=== PATIENT | female | born 1950 | race Caucasian/White ===

== ENCOUNTER 2017-04-23 11:06 | Emergency (ER) | payer OTHER ==
--- NOTE | 2017-04-23 11:26 | CPEKG ---
Heart Rate: 52 RR Interval: 1154 P-R Interval: 208 QRSD Interval: 82 QT Interval: 460 QTC Interval: 428 P [place]: 42 QRS [place]: 20 T Wave [place]: 47 EKG Severity - BORDERLINE ECG - EKG Impression: SINUS RHYTHM EKG Impression: CONSIDER ANTERIOR INFARCT Electronically Signed By: Mario Vigil 25-Apr-2017 08:16:02
[2017-04-23 11:42] LABS: % IMMATURE GRANULYOCYTES 0.2 % (0.0-1.1); ABSOLUTE IMMATURE GRANULOCYTES 0.01 10^3/uL (0.00-0.10); ADD DIFF? NO; ADD MORPH? NO; ADD SCAN? NO; ATYPICAL LYMPHOCYTE FLAG 0 (0-99); FRAGMENT RBC FLAG 0 (0-99); HEMATOCRIT 43.2 % (38.0-47.0); HEMOGLOBIN 14.3 g/dL (12.6-16.3); LEFT SHIFT FLG 0 (0-99); LIPEMIA HEMOLYSIS FLAG 80 (0-99); MEAN CELL HEMOGLOBIN 30.1 pg (27.9-34.1); MEAN CELL HEMOGLOBIN CONCENTR. 33.1 g/dL (32.4-36.7); MEAN CELL VOLUME 90.9 fL (81.5-99.8); MEAN PLATELET VOLUME 8.9 fL (8.7-11.7); PLATELET CLUMPS FLAG 0 (0-99); PLATELET COUNT 288 10^3/uL (150-400); RED BLOOD CELL COUNT 4.75 10^6/uL (4.18-5.33); RED CELL DISTRIBUTION WIDTH 13.2 % (11.5-15.2)
[2017-04-23 11:54] LABS: ALANINE AMINOTRANSFERASE 45 IU/L (9-52); ALBUMIN 4.7 g/dL (3.5-5.0); ALKALINE PHOSPHATASE 94 IU/L (38-126); ANION GAP 15 mEq/L (8-16); ASPARTATE AMINOTRANSFERASE 38 IU/L (14-46); BILIRUBIN,TOTAL 0.5 mg/dL (0.1-1.4); BILIRUBIN-CONJUGATED 0.2 mg/dL (0.0-0.5); BILIRUBIN-UNCONJUGATED 0.3 mg/dL (0.0-1.1); CALCIUM 9.9 mg/dL (8.5-10.4); CARBON DIOXIDE 25 mEq/l (22-31); CHLORIDE 101 mEq/L (97-110); CREATININE 0.6 mg/dL (0.6-1.0); GLOMERULAR FILTRATION RATE > 60; GLUCOSE 86 mg/dL (70-100); POTASSIUM 4.2 mEq/L (3.5-5.2); SODIUM 141 mEq/L (134-144); TOTAL PROTEIN 7.8 g/dL (6.3-8.2)
[2017-04-23 12:05] LABS: TROPONIN I < 0.012 ng/mL (0.000-0.034)
--- NOTE | 2017-04-23 12:09 | EDPHY ---
HPI/HX/ROS/PE/MDM Narrative: CHIEF COMPLAINT: Shortness of breath HPI: The patient is a 66-year-old female who complains of 1 week of shortness of breath. She reports intermittent episodes of shortness of breath that occur mostly at night and occasionally wake her up. The other night she had 4 of these episodes during the night. Over the past few days she developed mild chest pain that comes and goes. Patient has a history of GERD, she states she may have missed doses of her AcipHex. Patient is asymptomatic with exercise. She drove out here to visit her daughter. No history of DVT or PE. No pain or swelling in lower extremities. REVIEW OF SYSTEMS: Aside from elements discussed in the HPI, a comprehensive 10-point review of systems was reviewed and is negative. PMH: High cholesterol, Superficial melanoma, GERD SOCIAL HISTORY: Here visiting her daughter. PHYSICAL EXAM: General: Patient is alert, in no acute distress. ENT: Eyes are normal to inspection. ENT inspection normal. Neck: Normal inspection. Full range of motion. Respiratory: No respiratory distress. Breath sounds normal bilaterally. Cardiovascular: Regular rate and rhythm. Strong peripheral pulses. Abdomen: The abdomen is nontender to palpation. There are no peritoneal signs. There are normal bowel sounds. Back: Normal to inspection. No tenderness to palpation. Skin: Normal color. No rash. Warm and dry. Extremities: Normal appearance. Full range of motion. Neuro: Oriented x3. Normal motor function. Normal sensory function. ED Course: EKG was ordered and interpreted by myself, normal EKG. Please see [employer] system for official reading. Chest x-ray is normal. Lab work is normal. MDM: I had an extensive discussion with this patient regarding her workup and possible etiologies. We discussed the fact that although there is no evidence of ACS or ischemia, that this cannot be fully ruled out in the ED. We will give her referral to [facility]. I suspect her symptoms are likely related to GERD. She is able to exercise without CP or SOB, which is very reassuring. I see no evidence of PNA, TAD, PTX or PE. - Data Points Imaging Results: Imaging Impressions Chest X-Ray 04/23/17 11:36 Impression: Possible airways disease. No pneumonia. Imaging: I viewed and interpreted images myself Laboratory Results: Laboratory Results 04/23/17 11:27 04/23/17 11:27 04/23/17 04/23/17 11:27 11:27 WBC 5.40 10^3/uL 10^3/uL (3.80-9.50) RBC 4.75 10^6/uL 10^6/uL (4.18-5.33) Hgb 14.3 g/dL g/dL (12.6-16.3) Hct 43.2 % % (38.0-47.0) MCV 90.9 fL fL (81.5-99.8) MCH 30.1 pg pg (27.9-34.1) MCHC 33.1 g/dL g/dL (32.4-36.7) RDW 13.2 % % (11.5-15.2) Plt Count 288 10^3/uL 10^3/uL (150-400) MPV 8.9 fL fL (8.7-11.7) Neut % (Auto) 46.4 % % (39.3-74.2) Lymph % (Auto) 42.2 % % (15.0-45.0) Scott % (Auto) 8.5 % % (4.5-13.0) Eos % (Auto) 2.0 % % (0.6-7.6) Baso % (Auto) 0.7 % % (0.3-1.7) Nucleat RBC Rel Count 0.0 % % (0.0-0.2) Absolute Neuts (auto) 2.50 10^3/uL 10^3/uL (1.70-6.50) Absolute Lymphs (auto) 2.28 10^3/uL 10^3/uL (1.00-3.00) Absolute Monos (auto) 0.46 10^3/uL 10^3/uL (0.30-0.80) Absolute Eos (auto) 0.11 10^3/uL 10^3/uL (0.03-0.40) Absolute Basos (auto) 0.04 10^3/uL 10^3/uL (0.02-0.10) Absolute Nucleated RBC 0.00 10^3/uL 10^3/uL (0-0.01) Immature Gran % 0.2 % % (0.0-1.1) Immature Gran # 0.01 10^3/uL 10^3/uL (0.00-0.10) Sodium 141 mEq/L mEq/L (134-144) Potassium 4.2 mEq/L mEq/L (3.5-5.2) Chloride 101 mEq/L mEq/L (97-110) Carbon Dioxide 25 mEq/l mEq/l (22-31) Anion Gap 15 mEq/L mEq/L (8-16) BUN 18 mg/dL mg/dL (7-23) Creatinine 0.6 mg/dL mg/dL (0.6-1.0) Estimated GFR > 60 Glucose 86 mg/dL mg/dL (70-100) Calcium 9.9 mg/dL mg/dL (8.5-10.4) Total Bilirubin 0.5 mg/dL mg/dL (0.1-1.4) Conjugated Bilirubin 0.2 mg/dL mg/dL (0.0-0.5) Unconjugated Bilirubin 0.3 mg/dL mg/dL (0.0-1.1) AST 38 IU/L IU/L (14-46) ALT 45 IU/L IU/L (9-52) Alkaline Phosphatase 94 IU/L IU/L (38-126) Troponin I < 0.012 ng/mL ng/mL (0.000-0.034) Total Protein 7.8 g/dL g/dL (6.3-8.2) Albumin 4.7 g/dL g/dL (3.5-5.0) Lipase 38 IU/L IU/L (23-300) General Time Seen by Provider: 04/23/17 11:33 Initial Vital Signs: Initial Vital Signs Temperature (C) 36.4 C 04/23/17 11:10 Heart Rate 60 04/23/17 11:10 Respiratory Rate 18 04/23/17 11:10 Blood Pressure 151/104 H 04/23/17 11:10 O2 Sat (%) 97 04/23/17 11:10 O2 Delivery Mode Room Air Allergies/Adverse Reactions: Penicillins Allergy (Mild, Verified 04/23/17 11:10) Rash Home Medications: Medication Instructions Recorded Atorvastatin Calcium [Lipitor 20 20 mg PO DAILY 04/23/17 mg (*)] Rabeprazole Sodium [Aciphex] 20 mg PO 04/23/17 Departure - Departure Disposition: Home, Routine, Self-Care Clinical Impression: Shortness of breath Condition: Good Instructions: Dyspnea (ED) Additional Instructions: Return to the Emergency Department for fever, chest pain, shortness of breath, increasing pain or other worsening of condition. Follow up with a rag cutting machine tender for further testing, as soon as possible, within one week. You have been referred to [facility] below. As we discussed, it is impossible to fully rule out heart disease as the cause of your chest pain in the emergency department. We would be happy to reevaluate you and observe you in the hospital at any time. Referrals: [facility]LA[facility]ONG [Other] - As per Instructions [facility] [Provider Group] - As per Instructions Report Scribed for: Derrick Diggs Report Scribed by: Kaitlynn Reddy Date of Report: 04/23/17 Time of Report: 12:08 Physician Review and Approval Statement: Portions of this note were transcribed by a medical review coordinator. I personally performed the history, physical exam, and medical decision-making; and confirmed the accuracy of the information in the transcribed note.
[2017-04-23 12:19] VITALS: PULSE 56
[2017-04-23] MEDS ORDERED: FAMOTIDINE 20 MG TAB PO ONE (13:14)
[2017-04-23] MEDS ORDERED: FAMOTIDINE 20 MG TAB ONE (13:15)
[2017-04-23 14:16] VITALS: BP 117/77; RESP 16; TEMP 97.7; O2SAT 97
== END 2017-04-23 13:20 | disposition home or self-care (01) ==
DX: R06.02 Shortness of breath (principal); Z85.820 Personal history of malignant melanoma of skin

== ENCOUNTER 2017-07-16 09:00 | Day surgery (SDC) | payer OTHER ==
[2017-07-16] MEDS ORDERED: NS 500 ML IV ONE (09:19)
[2017-07-16] MEDS ORDERED: fentaNYL 100 MCG/2 ML INJ IVP ONE (09:19)
[2017-07-16] MEDS ORDERED: BENZOCAINE UNIT DOSE SPRAY HURRICAINE MM ONE (09:19)
[2017-07-16] MEDS ORDERED: MIDAZOLAM 2 MG/2 ML VIAL IVP ONE (09:19)
--- NOTE | 2017-07-16 10:20 | PDANEPAE ---
ANE History of Present Illness here for JANELLE ANE Past Medical History - Cardiovascular History Hx Hypertension: No Hx Arrhythmias: No Hx Chest Pain: No Hx Coronary Artery / Peripheral Vascular Disease: No Hx CHF / Valvular Disease: No Hx Palpitations: No - Pulmonary History Hx COPD: No Hx Asthma/Reactive Airway Disease: No Hx Recent Upper Respiratory Infection: No Hx Oxygen in Use at Home: No Hx Sleep Apnea: No - Neurologic History Hx Cerebrovascular Accident: No Hx Seizures: No Hx Dementia: No - Endocrine History Hx Diabetes: No Hypothyroid: Yes Hyperthyroid: No Obesity: no - Renal History Hx Renal Disorders: No - Liver History Hx Hepatic Disorders: No - Neurological & Psychiatric Hx Hx Neurological and Psychiatric Disorders: No - Cancer History Hx Cancer: No - GI History GERD: moderate ANE Review of Systems Review of systems is: negative Review of Systems: - Exercise capacity Exercise capacity: >=4 METS ANE Patient History - Allergies Allergies/Adverse Reactions: Penicillins Allergy (Mild, Verified 04/23/17 11:10) Rash - Home Medications Home medications: home medication list seen and reviewed Home Medications: Atorvastatin Calcium [Lipitor 20 mg (*)] 20 mg PO DAILY 04/23/17 [Last Taken 04/23] Rabeprazole Sodium [Aciphex] 20 mg PO 04/23/17 [Last Taken 07/15/17] Lexapro 10 mg 07/16/17 [Last Taken 07/15/17] Synthroid 175 mcg (*) 07/16/17 [Last Taken 07/15/17] - NPO status NPO Status: no food or drink >8 hours - Anes Hx Anes Hx: no prior problems - Smoking Hx Smoking Status: Former smoker ANE Labs/Vital Signs - Vital Signs Height: 157.48 cm Weight: 61.689 kg ANE Physical Exam - Airway Neck exam: FROM Mallampati Score: Class 1 Mouth exam: normal dental/mouth exam - Pulmonary Pulmonary: no respiratory distress - Cardiovascular Cardiovascular: regular rate and rhythym - ASA Status ASA Status: II ANE Anesthesia Plan Anesthesia Plan: GA with mask
[2017-07-16] MEDS ORDERED: ATROPINE SULFATE 1 MG/10 ML SYR ONE (10:34)
[2017-07-16] MEDS ORDERED: PROPOFOL/EMULSION 500 MG/50 ML BOTTLE IV ONE (10:35)
--- NOTE | 2017-07-16 12:15 | POSTANESTH ---
Post Anesthetic Evaluation Cardiovascular Status: Normal, Stable Respiratory Status: Normal, Stable Level of Consciousness/Mental Status: Mildly Sleepy, Arousable Pain Control: Adequate, Prn Tx Ordered Nausea/Vomiting Control: Adequate, Prn Tx Ordered Complications Possibly Related to Anesthesia: None Noted
--- NOTE | 2017-07-16 18:25 | ECHO ---
[email or web address] [address] [address] Main: [phone] Fax: Transesophageal Echocardiography Name: SHAUN HORNER MR#: [id number] Study Date: 07/16/2017 Study Time: 09:56 AM Date of : 1950 Age: 66 year(s) Height: ( ) Weight: ( ) BSA: Gender: Female Examination: JANELLE Indication: Eval for VSD Image Quality: Contrast: Requested by: Michael Zhao Heart Rate: Rhythm: Normal sinus rhythm BP: / Procedure Staff Federal Appellate Clerk: Santana Maldonado Reading Physician: Delroy Devine Requesting Provider: JANELLE Exam Details Conclusions: Normal size left ventricle. Normal global systolic LV function. The ejection fraction is estimated to be 60-65 %. No evidence of membranous VSD. Negative Saline contrast study . Measurements: Chambers Valvular Assessment AV/MV Valvular Assessment TV/PV Normal Normal Normal Name Value Range Name Value Range Name Value Range EF Range: 60-65 % Additional Measurements: Findings: Left Ventricle: Normal size left ventricle. Normal global systolic LV function. The ejection fraction is estimated to be 60-65 %. No evidence of membranous VSD. Negative Saline contrast study . Right Ventricle: Normal size right ventricle. Normal RV function. Left Atrium: The left atrium is normal in size. No thrombus is noted in the left atrium. Left Atrial Appendage: No color flow doppler in the left atrial appendage. Normal PW-Doppler flow pattern. No thrombus in Patient: SHAUN HORNER Study Date: 07/16/2017 Page 1 of 2 09:56 AM left appendage. Right Atrium: The right atrium is normal in size. Eustachian valve discernible in right atrium. Mitral Valve: The mitral valve is normal in appearance and function. Trivial mitral valve regurgitation. Aortic Valve: The aortic valve is normal in appearance and function. The aortic valve is tri-leaflet. There is no aortic valve regurgitation. Lambls excrescences are noted on the aortic valve. Tricuspid Valve: The tricuspid valve is normal in appearance and function. Pulmonic Valve: The pulmonic valve is normal in appearance and function. There is no pulmonic regurgitation seen. Aorta: The aorta is normal. Pericardium: No pericardial effusion. Exam Comments: There is thinning of the ventricular basilar inferoseptal segment with no evidence of a VSD by colorflow or bubble study.. l1n (No Signature Object) Patient: SHAUN HORNER Study Date: 07/16/2017 Page 2 of 2 09:56 AM [id number]
--- NOTE | 2017-07-16 21:03 | GPN ---
[f rep st] PROCEDURE NOTE DATE OF PROCEDURE: 07/16/2017 NAME OF PROCEDURE: TRANSESOPHAGEAL ECHOCARDIOGRAM INDICATION FOR PROCEDURE: Concern for possible membranous ventricular septal defect on transthoracic echocardiogram. DESCRIPTION OF PROCEDURE: After informed consent was obtained for both transesophageal echocardiogra m, as well as anesthesia, bite block was placed. Appropriate level of sedation was achieved. JANELLE pr obe was passed without incident. JANELLE probe was used to take images of all cardiac structures. An ag itated saline contrast study was also performed. Doppler images of the membranous septum were obtain ed in multiple views. There was no evidence of membranous septal defect. There was no evidence of r ight to left shunting. Please see complete JANELLE report for full details. She tolerated the procedure well. There were no postoperative complications. PLAN: 1. The patient will be discharged home. 2. The patient will follow up with her surface mount technology operator, Dr. Tex Rob. I have conveyed to Dr. Shawn hardin the findings on the JANELLE. 3. I have reviewed the transesophageal echocardiograms in detail with the patient, and answered all of her questions. She was stable for discharge. /[id number]/MODL
== END 2017-07-16 14:04 | disposition home or self-care (01) ==
LOC: FCATH 09:00
PROVIDERS: ATTEND Internal Medicine Cardiovascular Disease
PROC: B246ZZ4 Ultrasonography of Right and Left Heart, Transesophageal (ICD-10-PCS; principal; 2017-07-16)
DX: Q21.0 Ventricular septal defect (principal)
CPT/HCPCS: J0461; J2704

== ENCOUNTER 2018-12-10 13:10 | Emergency (ER) | payer OTHER ==
[2018-12-10 13:24] VITALS: BP 125/73
--- NOTE | 2018-12-10 13:33 | EDPHY ---
H & P Stated Complaint: Back of neck discomfort for 4 days. Time Seen by Provider: 12/10/18 13:33 - Personal History Current Tetanus Diphtheria and Acellular Pertussis (TDAP): Yes - Medical/Surgical History Hx Asthma: No Hx Chronic Respiratory Disease: No Hx Diabetes: No Hx Cardiac Disease: No Hx Renal Disease: No Hx Cirrhosis: No Hx Alcoholism: No Hx HIV/AIDS: No Hx Splenectomy or Spleen Trauma: No Other PMH: GERD. Cholesterol. Anal Cancer. - Social History Smoking Status: Former smoker Constitutional: Initial Vital Signs Temperature (C) 36.6 C 12/10/18 13:22 Heart Rate 72 12/10/18 13:22 Respiratory Rate 16 12/10/18 13:22 Blood Pressure 125/73 H 12/10/18 13:22 O2 Sat (%) 95 12/10/18 13:22 O2 Delivery Mode Room Air Allergies/Adverse Reactions: Penicillins Allergy (Mild, Verified 04/23/17 11:10) Rash Home Medications: Medication Instructions Recorded Atorvastatin Calcium [Lipitor 20 20 mg PO DAILY 04/23/17 mg (*)] Rabeprazole Sodium [Aciphex] 20 mg PO 04/23/17 Lexapro 10 mg 07/16/17 Synthroid 175 mcg (*) 07/16/17 Acyclovir 12/10/18 Hydrocodone/APAP 5/325 [[place] 1 - 2 each PO Q4-6PRN PRN #20 tab 12/10/18 5/325] Ibuprofen [Motrin] 800 mg PO Q8 #20 tab 12/10/18 Keflex 12/10/18 Medical Decision Making - Diagnostics Imaging Results: Imaging Impressions Head CT 12/10/18 13:40 Impression: 1. No significant intracranial abnormality seen. If symptoms worsen, additional imaging may be necessary. Findings discussed with Geovanny Arreguin MD at 14:04 hour, 12/10/2018. Imaging: Discussed imaging studies w/ machine scallop cutter Radiologist, I viewed and interpreted images myself ED Course/Re-evaluation: CHIEF COMPLAINT: Neck discomfort HISTORY OF PRESENT ILLNESS: The patient is a 68 y/o female with a history of anal cancer (in remission) complaining of neck discomfort and a headache onset 4 days ago. The patient reports that her last round of radiation was in June 2018 and she had a clear scan 2 weeks ago. Starting 4 days ago she developed the upper neck discomfort and headache. She denies any recent trauma, but is unsure if she lifted something abnormally. Yesterday she flew from [place] to [place] and tried to stay hydrated due to the increase in altitude. However, she continues to have point tenderness at the junction of her neck and skull on the left side. Her pain is present when she moves her head. No fever, body aches, lightheadedness, chest pain, heart palpitations, shortness of breath, cough, abdominal pain, urinary or bowel complaints, numbness, paresthesias. REVIEW OF SYSTEMS: A comprehensive 10 system review of systems is otherwise negative aside from elements mentioned in the history of present illness and medical decision making. PHYSICAL EXAM: HR, BP, O2 Sat, RR. Temp noted General Appearance: Alert, well hydrated, appropriate, and non-toxic appearing. Head: Atraumatic without scalp tenderness or obvious injury Eyes: Pupils equal, round, reactive to light and accommodation, EOMI, no trauma , no injection. Ears: Clear bilaterally, no perforation, normal landmarks Nose: Atraumatic, no rhinorrhea, clear. Throat: There is no erythema or exudates, no lesions, normal tonsils, mucus membranes moist. Neck: Point tenderness on left occipital condyle. Supple, 2+ carotid upstroke, no lymphadenopathy. Respiratory: No retractions, no distress, no wheezes, and no accessory muscle use. Lungs are clear to auscultation bilaterally. Cardiovascular: Regular rate and rhythm, no murmurs, rubs, or gallops. Bilateral carotid, radial, dorsalis pedis, and posterior tibial pulses intact. Good capillary refill all extremities. Gastrointestinal: Abdomen is soft, nontender, non-distended, no masses, no rebound, no guarding, no peritoneal signs. Musculoskeletal: Normal active ROM of all extremities, atraumatic. Neurological: Alert, appropriate, and interactive. The patient has normal DTRs and non-focal cranial nerves, motor, sensory, and cerebellar exam. Skin: No rashes, good turgor, no nodules on palpation. Past medical history: GERD, anal cancer Past surgical history: Lymph node surgery Family history: Denies Social history: Visiting from [place], at bedside, retired DIAGNOSTICS/PROCEDURES/CRITICAL CARE TIME: Head CT: No acute findings. DIFFERENTIAL DIAGNOSIS: The differential diagnosis for the patient's neck pain included but was not limited to cranial pain, musculoskeletal pain, epidural abscess, herniated disk , spinal fracture. MEDICAL DECISION MAKING: The patient is a 68 y/o female with a history of anal cancer (in remission) complaining of neck discomfort and a headache onset 4 days ago. The patient reports that her last round of radiation was in June 2018 and she had a clear scan 2 weeks ago. Starting 4 days ago she developed the upper neck discomfort and headache. She denies any recent trauma, but is unsure if she lifted something abnormally. Yesterday she flew from [place] to [place] and tried to stay hydrated due to the increase in altitude. However, she continues to have point tenderness at the junction of her neck and skull on the left side. Her pain is present when she moves her head. Head CT ordered to rule out osseous lesion from GI cancer; 0.5mg PO Ativan administered for patient's claustrophobia. 1404: I spoke with the radiologist who reports that the patient has a negative CT. 1408: Reassessed patient and discussed normal imaging findings. I have advised her to take Motrin and [place] for her symptoms. Return precautions provided; patient is comfortable with this plan. - Data Points Medications Given: Discontinued Medications Lorazepam (Ativan) 0.5 mg PO EDNOW ONE Stop: 12/10/18 13:48 Last Admin: 12/10/18 14:06 Dose: 0.5 mg Departure - Departure Disposition: Home, Routine, Self-Care Clinical Impression: Cranial pain Qualifiers: Headache type: unspecified Headache chronicity pattern: acute headache Intractability: intractable Qualified Code(s): R51 - Headache Condition: Good Instructions: Acute Headache (ED), Neck Pain (ED) Additional Instructions: 1. Follow-up with your primary care physician within 72 hours. 2. Return to the emergency department immediately for recurrence of headache, nausea, vomiting, numbness, weakness, neck pain, fever or other concerns. 3. Use ibuprofen and [place] as prescribed. Referrals: [facility],. [Clinic] - As per Instructions Ayden Green DO [Doctor of Osteopathy] - As per Instructions Prescriptions: Hydrocodone/APAP 5/325 [[place] 5/325] 1 - 2 each PO Q4-6PRN PRN #20 tab PRN Reason: Pain, Moderate Ibuprofen [Motrin] 800 mg PO Q8 #20 tab Report Scribed for: Geovanny Arreguin Report Scribed by: Leslie Ndiaye Date of Report: 12/10/18 Time of Report: 13:34
[2018-12-10] MEDS ORDERED: LORazepam 0.5 MG TAB ONE (13:46)
[2018-12-10] MEDS ORDERED: LORazepam 0.5 MG TAB PO ONE (13:47)
== END 2018-12-10 14:13 | disposition home or self-care (01) ==
DX: R51 Headache (principal); M54.2 Cervicalgia; K21.9 Gastro-esophageal reflux disease without esophagitis; Z85.048 Personal history of other malignant neoplasm of rectum, rectosigmoid junction, and anus; Z87.891 Personal history of nicotine dependence